=== PATIENT | male | born 1950 | race Caucasian/White ===

== ENCOUNTER 2019-07-25 23:25 | Inpatient (IN) | payer MEDICARE ==
[2019-07-26 00:03] LABS: Hemoglobin 9.1 g/dL (14.0-18.0); Mean Corpuscular Hemoglobin 28.9 pg (27.0-31.0); Mean Corpuscular Volume 90.4 fL (78.0-98.0); RBC Distribution Width 23.9 % (11.5-14.5); Red Blood Cell (RBC) Count 3.15 mill/uL (4.70-6.10); White Blood Cell (WBC) Count 1.7 thou/uL (4.8-10.8)
[2019-07-26 00:04] LABS: INR-International Normal Ratio 1.1; PTT 31.9 SEC (22.9-36.1); Prothrombin Time 14.5 SEC (12.0-14.7)
[2019-07-26 00:15] LABS: Platelet Count 9 thou/uL (130-400)
[2019-07-26 00:16] LABS: ALT (SGPT) 14 U/L (8-55); AST (SGOT) 17 U/L (5-34); Albumin 4.2 g/dL (3.4-4.8); Alkaline Phosphatase 69 U/L (40-110); Anion Gap 13 mmol/L (10-20); BUN (Urea Nitrogen) 13 mg/dL (8.4-25.7); Calc. Creatinine Clearance 0 mL/min (70-130); Calcium 9.4 mg/dL (7.8-10.44); Carbon Dioxide 23 mmol/L (23-31); Chloride 108 mmol/L (98-107); Estimated GFR-MDRD 75; Globulin 3.4 g/dL (2.4-3.5); Glucose 95 mg/dL (80-115); Potassium 3.6 mmol/L (3.5-5.1); Protein, Total 7.6 g/dL (5.8-8.1); Sodium 140 mmol/L (136-145)
[2019-07-26 00:22] LABS: Anisocytosis SLIGHT = 6-15 cells (100X) (0-5/hpf); Differential Comment Immature Cell(s); Elliptocytes SLIGHT = 2-5 cells (100X) (0-1/hpf); Lymphocytes 84 % (21-51); MDiff Complete? YES; Monocytes 11 % (0-10); Neutrophil 4 % (42-75); Nucleated RBC 1 % (0); Tear Drops SLIGHT = 2-5 cells (100X) (0-1/hpf)
--- NOTE | 2019-07-26 02:05 | PDOC.EVN ---
Event Note - Event Note Event Note: [id number] HP
--- NOTE | 2019-07-26 03:09 | HP ---
CHIEF COMPLAINT: Abnormal labs. HISTORY OF PRESENT ILLNESS: Mr. Parr is a 68-year-old male with past medical history of leukemia, recently diagnosed with subdural hematoma, presents to the emergency room after abnormal labs at PCP. PCP's office called and the patient was told that he has abnormal labs and low platelets and he needs to go to the emergency room. The patient was in the [facility] last week, has lived there for three years, diagnosed with subdural hematoma. He also had a low platelet count around 10, he was given blood transfusion and platelet transfusion in the [facility]. The patient brain bleed would fix itself? The patient has mild headaches. CT of the brain showed acute over chronic subdural hematoma. ED physician consulted with neurosurgeon, who advised to give platelet transfusions and admit the patient under Medical Service. The patient was diagnosed with leukemia few years ago and he was given one round of chemotherapy, after that he did not follow. Today in the emergency room, the patient has low white cell count, low platelets, and anemic. Platelet count is 8000. The patient is being admitted to the hospital for further management. PAST MEDICAL HISTORY: 1. Recently diagnosed with subdural hematoma. 2. Leukemia. PAST SURGICAL HISTORY: Right ankle surgery. FAMILY HISTORY: Reviewed and noncontributory. SOCIAL HISTORY: Denies smoking, alcohol drinking, or drug abuse. HOME MEDICATIONS: Please see home medication reconciliation form for updated medications. ALLERGIES: NO KNOWN ALLERGIES. REVIEW OF SYSTEMS: Review of 14 systems negative except what is mentioned in the history of present illness. PHYSICAL EXAMINATION: GENERAL: The patient is awake, alert, does not appear to be in acute distress. VITAL SIGNS: Blood pressure 142/72, pulse is 62, respiratory rate is 18, pulse oximetry is 100% on room air, and temperature 97.6. HEAD AND NECK: Normocephalic, atraumatic. Neck is supple. No JVD. CHEST: Fair bilateral air entry. HEART: S1 and S2. Regular. ABDOMEN: Soft, nontender. Bowel sounds present. NEUROLOGIC: Awake, alert, oriented x3. No focal deficit. PSYCH: Normal mood. EXTREMITIES: No clubbing or cyanosis. LABORATORY DATA: As mentioned above in the history of present illness. IMAGING DATA: CT of the brain as mentioned above in the history of present illness. ASSESSMENT: 1. Acute on chronic subdural hematoma. 2. Thrombocytopenia. 3. Anemia. 4. Leukopenia. 5. History of leukemia. 6. Hypertension. PLAN: 1. Admit to CCU. 2. Frequent neuro checks. 3. Platelet transfusion as recommended by neurosurgeon. 4. Neurosurgeon consult for evaluation and further management. 5. Consider Hematology/Oncology consultation in a.m. for evaluation and further management. 6. Reconcile home medications. 7. DVT prophylaxis, SCD. 8. Expected length of stay, 2 midnights or more. Job ID: [id number]
[2019-07-26 03:21] VITALS: BMI 23.6
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
[2019-07-26 05:23] LABS: Anion Gap 13 mmol/L (10-20); BUN (Urea Nitrogen) 13 mg/dL (8.4-25.7); Calc. Creatinine Clearance 88 mL/min (70-130); Calcium 9.2 mg/dL (7.8-10.44); Carbon Dioxide 22 mmol/L (23-31); Chloride 109 mmol/L (98-107); Estimated GFR-MDRD 89; Glucose 81 mg/dL (80-115); Potassium 3.8 mmol/L (3.5-5.1); Sodium 140 mmol/L (136-145)
[2019-07-26 05:28] LABS: Platelet Count 28 thou/uL (130-400)
[2019-07-26 06:01] LABS: Anisocytosis SLIGHT = 6-15 cells (100X) (0-5/hpf); Band 1 % (5-11); Elliptocytes SLIGHT = 2-5 cells (100X) (0-1/hpf); Hemoglobin 8.8 g/dL (14.0-18.0); Lymphocytes 85 % (21-51); MDiff Complete? YES; Mean Corpuscular HGB CONC 31.7 g/dL (32.0-36.0); Mean Corpuscular Hemoglobin 28.9 pg (27.0-31.0); Mean Corpuscular Volume 91.3 fL (78.0-98.0); Mean Platelet Volume 9.2 fL (7.4-10.4); Monocytes 13 % (0-10); Neutrophil 1 % (42-75); Nucleated RBC 2 % (0); Platelet Morphology Comment Appears Decreased; RBC Distribution Width 23.2 % (11.5-14.5); Red Blood Cell (RBC) Count 3.05 mill/uL (4.70-6.10); Tear Drops SLIGHT = 2-5 cells (100X) (0-1/hpf); White Blood Cell (WBC) Count 2.3 thou/uL (4.8-10.8)
--- NOTE | 2019-07-26 07:52 | CT ---
PRELIMINARY REPORT/[facility]/EMERGENCY AFTER HOURS PROCEDURE: Addendum created by Damien Huang MD on 07/26/2019 12:53 AM Central Time ([place] & [place]) CRITICAL RESULT : The study was discussed on the telephone with Courtney Gomez on 07/26/2019 12:53 AM CDT. The resu lts were understood and acknowledged. Initial Report created on 07/26/2019 12:44 AM Central Time ([place] & [place]) PROCEDURE INFORMATION: Exam: CT Head Without Contrast Exam date and time: 07/26/2019 12:34 AM Clinical history: 68 years old, male; Condition or disease; Patient HX: M68, headache, patient called today from pcp office due to critical lab result. Platelet count at 9. Was in the hospital in the [facility] last week for brain bleed. TECHNIQUE: Imaging protocol: Computed tomography of the head without contrast. COMPARISON: No relevant prior studies available. FINDINGS: Brain: Mixed attenuation right frontal extra-axial hemorrhage likely represent acute on subacute subd ural hematoma with clot. Maximal thickness of 1.4 cm. Extensive left sided mixed attenuation subdural hematoma extending from the medial left frontal lobe to the occipital lobe. This demonstrates maximal thickness of 1.1 cm. Approximately 4 cm of leftward subfalcine shift. Probable 1 mm residual parafalcine subdural hemorrhage. No parenchymal hemorrhage. Ventricles: No ventriculomegaly. Bones/joints: Unremarkable. No acute fracture. Sinuses: Visualized sinuses are unremarkable. No fluid levels. Mastoid air cells: Visualized mastoid air cells are well aerated. Soft tissues: Unremarkable. IMPRESSION: Bilateral left greater than right acute on subacute/chronic subdural hematomas with maximal thickness of 1.4 cm on the right and approximately 4 mm of leftward subfalcine shift without ventricular entra pment. Thank you for allowing us to participate in the care of your patient. Dictated and Authenticated by: Damien Huang MD 07/26/2019 12:44 AM Central Time ([place] & [place]) FINAL REPORT EMERGENT AFTER HOURS CT OF THE BRAIN WITHOUT CONTRAST: FINDINGS/IMPRESSION: I agree with the findings and impression given in the preliminary report per [facility] physician. There are acute on chronic bilateral subdural hematomas, left greater than right. POS: [facility]
[2019-07-26] MEDS: Famotidine/PF 20 mg/2ml Vial SLOW IVP SCH ×2 (08:50→20:06)
[2019-07-26] MEDS ORDERED: Prevnar 13-Val Conj/PF 0.5 ML SYRINGE IM ONE (09:00)
[2019-07-26] MEDS ORDERED: FLU VACC TS2019-20(65YR UP)/PF 180 MCG/0.5 ML SYRINGE IM ONE (09:00)
--- NOTE | 2019-07-26 09:21 | CT ---
Head CT without contrast 07/26/2019 9:05 am: COMPARISON: 07/26/2019 HISTORY: Reevaluate intracranial hemorrhage TECHNIQUE: Axial CT imaging at 5 mm intervals from vertex through skull base without contrast FINDINGS: Bilateral acute on chronic subdural hematomas are again noted. Components of bilateral subd ural hematomas are seen in the frontal, parietal, and occipital regions, most prominent in the frontal regions, measuring up to 1.4 cm in transverse dimension in the right frontal region and measu ring up to approximately 1.1 cm and the left frontal region. There has been no significant interval change when compared to the prior examination performed approximately 8-9 hours prior. The ventricula r system is stable in size/configuration. No significant midline shift. No acute osseous abnormality. IMPRESSION: Stable hemispheric acute on chronic bilateral subdural hematomas.
--- NOTE | 2019-07-26 14:06 | PDOC.HOSPP ---
- Subjective Encounter Date: 07/26/19 Encounter Time: 12:35 Subjective: awake, no weakness in any extremities mild headache, no visual disturbances, wear glasses (cant locate it now) - Objective Vital Signs & Weight: Vital Signs (12 hours) Temp Pulse Ox 07/26/19 12:00 97.7 F 07/26/19 08:00 98.2 F 99 07/26/19 03:00 97.9 F 100 Weight Admit Weight 164 lb Weight 164 lb 10.965 oz Most Recent Monitor Data Heart Rate from ECG 62 NIBP 136/70 NIBP BP-Mean 92 Respiration from ECG 20 SpO2 100 I&O: 07/25/19 07/26/19 07/27/19 06:59 06:59 06:59 Intake Total 460 Output Total 300 725 Balance -300 -265 Result Diagrams: 07/26/19 04:42 07/26/19 04:41 Hospitalist ROS - Medication Medications: Active Medications Generic Name Dose Route Start Last Admin Trade Name Freq PRN Reason Stop Dose Admin Famotidine 20 mg 07/26/19 09:00 07/26/19 08:50 Pepcid SLOW IVP 20 mg Q12HR ANGEL Administration - Exam General Appearance: awake alert Eye: PERRL, anicteric sclera ENT: no oropharyngeal lesions, moist mucosa Neck: supple, no JVD Heart: RRR, no murmur Respiratory: no wheezes, no rales Gastrointestinal: soft, non-tender, non-distended, normal bowel sounds Extremities: no clubbing, no edema Neurological: cranial nerve grossly intact, no focal deficits Psychiatric: normal affect, A&O x 3 Hosp A/P (1) Subdural hematoma Code(s): S06.5X9A - TRAUM SUBDR HEM W LOC OF UNSP DURATION, INIT Status: Acute (2) AML (acute myeloid leukemia) Code(s): C92.00 - ACUTE MYELOBLASTIC LEUKEMIA, NOT HAVING ACHIEVED REMISSION Status: Chronic Qualifiers: Leukemia Active/Remission status: without remission Qualified Code(s): C92.00 - Acute myeloblastic leukemia, not having achieved remission (3) Pancytopenia Code(s): D61.818 - OTHER PANCYTOPENIA Status: Acute - Plan has h/o AML diagnosed in [address] [facility] in [facility] (bone marrow and other w/u from there are in chart) he took one cycle of chemo, lost nearly 30lbs and didn't want to go through that again he has not seen a onc [place] in [place] recieved 6 pack platelets last night, still low at 28 now [facility] consult may give additional platelets if signs of ICH/sdh or if surgery is planned to bring it upto 50k. may transfer to onc floor if no surgery is planned oob to chair and ambulate as tolerated
--- NOTE | 2019-07-26 17:49 | PRG ---
DATE OF SERVICE: 07/26/2019 Mr. Parr is a 68-year-old gentleman admitted for thrombocytopenia in the setting of a previous diagnosis of leukemia dating back 4 to 5 years ago. He had a CT examination performed of the head, which revealed mixed density bilateral subdural hematomas over both cerebral convexities. Neurologically, he appeared to be at baseline. He reports only mild degree of headache. His platelet count has increased from a single digit of 9 up to 28 as of early this morning. The plan from neurosurgical perspective at this time will be nonoperative management given his stable neurologic exam. We advocate the treatment of his platelets in order to reduce risk of a spontaneous hemorrhage, but also mitigate risk should he need a surgical intervention for nirmal hole drainage. The neurosurgical service will continue to follow. Job ID: [id number]
--- NOTE | 2019-07-26 20:34 | CON ---
DATE OF CONSULTATION: REASON FOR CONSULTATION: AML. HISTORY OF PRESENT ILLNESS: Mr. 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 This was done in the [facility], where he was working. He had 49% blasts. He underwent one dose of chemotherapy. Repeat bone marrow showed a blast count of 17%. At that point, he moved back to the [facility] and he was 65 years old and unable to get any type of insurance, so he did not pursue further treatment. He has done well over the last several years until recently when he had a fall and hit his head. He was diagnosed with a subdural hematoma, it was noted at that time and his platelets were decreased. He stayed in the hospital in the [facility] for over a week. He was discharged on July 16 and flew back to the [facility], where he saw his primary care. She checked a CBC. He had a white count of 1.8 and a platelet count of 8000, so he was sent to the emergency room for evaluation. Here, he is complaining of headaches, so he had a repeat CT scan of his brain. It showed acute on chronic subdural hematomas. He was transfused platelets and admitted for neuro stabilization. The patient at time of original diagnosis in 2015 was treated for dengue fever. In the [facility], he had high fevers and was hospitalized for multiple times before finally being diagnosed with leukemia. He denies any complaints at this time other than fatigue. No shortness of breath, chest pain, or abdominal pain. He has fatigue. No headache or neurological changes. PAST MEDICAL HISTORY: 1. AML diagnosed in [address] [facility]. 2. Subdural hematoma diagnosed a month ago in the [facility]. PAST SURGICAL HISTORY: Ankle surgery. ALLERGIES: NO KNOWN DRUG ALLERGIES. HOME MEDICATIONS: 500 mg t.i.d. FAMILY HISTORY: Noncontributory. SOCIAL HISTORY: Single. 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 No alcohol, tobacco, or illicit drug use. REVIEW OF SYSTEMS: A 10-point review of systems is negative except for noted in HPI. PHYSICAL EXAMINATION: VITAL SIGNS: Temperature is 97.7, pulse is 62, respiratory rate 20, blood pressure is 136/70, and he is 100% on room air. GENERAL: This is a well-developed, well-nourished male, in no acute distress. HEENT: Normocephalic and atraumatic. Pupils are equal and reactive to light. NECK: Supple. CV: Regular rate and rhythm. LUNGS: Clear. ABDOMEN: Soft and nontender. Bowel sounds are positive. EXTREMITIES: No clubbing or cyanosis. SKIN: No rash. HEMATOLOGIC: He has ecchymosis on his upper extremities. Scattered petechiae. NEUROLOGIC: Nonfocal. PSYCHIATRIC: He is alert, oriented, and appropriate. PERTINENT LABORATORY DATA AND X-RAYS: Current WBCs are 2.3, hemoglobin 8.8, hematocrit 27.8, platelet count is 28,000, 1% neutrophils, 1% bands, 85% lymphocytes, and 13% monocytes. PT is 14.5, INR 1.1, and PTT is 31.9. Sodium is 140, potassium 3.8, chloride 109, CO2 is 22, BUN is 13, creatinine 0.86, glucose 81, calcium 9.2. Bilirubin 1.0, AST 17, ALT is 14, alkaline phosphatase is 69, serum total protein 7.6, albumin 4.2, and globulin 3.4. RADIOLOGY: Per HPI. ASSESSMENT: 1. History of acute myeloid leukemia. 2. Pancytopenia secondary to #1. 3. Acute on chronic subdural hematoma. DISCUSSION: The patient has been transfused platelets. Goal will be keep platelets between 40,000 to 50,000. Given his acute subdural hematomas, we will transfuse another unit today as he has not had any since early this morning. We will check a routine CBC in the morning. The patient will need a bone marrow biopsy to re-stage for his AML. He has agreed to this procedure. We will order that and hopefully that can be done in the morning and further recommendations will be based on those results. This has been discussed with the patient and daughter at bedside. They would wish to proceed. I have also discussed with Dr. Lao. Thank you for the consult. We will follow his hospital course. Job ID: [id number]
[2019-07-26] MEDS: Acetaminophen 325 MG TAB PO PRN (23:37)
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
[2019-07-27 05:26] LABS: Anion Gap 15 mmol/L (10-20); BUN (Urea Nitrogen) 12 mg/dL (8.4-25.7); Calc. Creatinine Clearance 92 mL/min (70-130); Calcium 8.9 mg/dL (7.8-10.44); Carbon Dioxide 19 mmol/L (23-31); Chloride 109 mmol/L (98-107); Estimated GFR-MDRD Greater than 90; Glucose 83 mg/dL (80-115); Potassium 3.8 mmol/L (3.5-5.1); Sodium 139 mmol/L (136-145)
[2019-07-27 09:08] LABS: Hemoglobin 9.7 g/dL (14.0-18.0); Mean Corpuscular HGB CONC 31.6 g/dL (32.0-36.0); Mean Corpuscular Hemoglobin 28.3 pg (27.0-31.0); Mean Corpuscular Volume 89.7 fL (78.0-98.0); Platelet Count 43 thou/uL (130-400); RBC Distribution Width 23.8 % (11.5-14.5); Red Blood Cell (RBC) Count 3.43 mill/uL (4.70-6.10)
[2019-07-27 09:26] LABS: Band 2 % (5-11); Hypochromia SLIGHT = 6-15 cells (100X) (0-5/hpf); Lymphocytes 74 % (21-51); MDiff Complete? YES; Monocytes 8 % (0-10); Neutrophil 16 % (42-75); Platelet Morphology Comment Appears Decreased; Polychromasia SLIGHT = 2-3 cells (100X) (0-2/hpf); Schistocytes SLIGHT = 2-5 cells (100X) (0-1/hpf); Tear Drops SLIGHT = 2-5 cells (100X) (0-1/hpf)
[2019-07-27] MEDS: Famotidine/PF 20 mg/2ml Vial SLOW IVP SCH (10:14)
[2019-07-27] MEDS ORDERED: Sodium Bicarbonate 2.5 MEQ/5 ML VIAL ONE (10:34)
[2019-07-27] MEDS ORDERED: Fentanyl 100 MCG/2 ML VIAL ONE (10:35)
[2019-07-27] MEDS ORDERED: Midazolam HCl 2 mg/2 ml Vial ONE (10:35)
--- NOTE | 2019-07-27 11:47 | PDOC.MOPN ---
Interval History: had BM biopsy this am. Tolerated well. No complaints. - Vital Signs Vital Signs: Vital Signs (12 hours) Temp Pulse Resp BP Pulse Ox 07/27/19 11:42 70 19 122/60 99 07/27/19 10:05 97.8 F 66 18 143/67 H 100 07/27/19 10:04 100 07/27/19 08:00 98 07/27/19 07:00 98.2 F 07/27/19 04:00 98.5 F 07/27/19 00:00 98.1 F Weight Admit Weight 164 lb Weight 164 lb 7.437 oz Most Recent Monitor Data Heart Rate from ECG 69 NIBP 125/68 NIBP BP-Mean 87 Respiration from ECG 19 SpO2 98 - Physical Exam General: Alert, Oriented x3, No acute distress HEENT: Atraumatic, PERRLA, EOMI, Mucous membr. moist/pink Lungs: Clear to auscultation, Normal air movement Cardiovascular: Regular rate, Normal S1, Normal S2, No murmurs, Gallops, Rubs Abdomen: Normal bowel sounds, Soft, No tenderness, No hepatospenomegaly, No masses Extremities: No clubbing, No cyanosis, No edema, Normal pulses, No tenderness/ swelling Skin: No rashes, No breakdown, No significant lesion Neurological: Normal gait, Normal speech, Strength at 5/5 X4 ext, Normal tone, Sensation intact, Cranial nerves 3-12 NL, Reflexes 2+ Psych/Mental Status: Mental status NL, Mood NL - Labs Result Diagrams: 07/27/19 08:44 07/27/19 04:49 Lab results: Laboratory Results - last 24 hr 07/27/19 08:44: WBC 2.0 L, RBC 3.43 L, Hgb 9.7 L, Hct 30.8 L, MCV 89.7, MCH 28.3 , MCHC 31.6 L, RDW 23.8 H, Plt Count 43 L, MPV 7.0 L, Neutrophils % (Manual) 16 L, Band Neuts % (Manual) 2 L, Lymphocytes % (Manual) 74 H, Monocytes % (Manual) 8, Neutrophils # Not Reportable, Lymphocytes # Not Reportable, Hypochromia SLIGHT = 6-15 cells, Plt Morphology Comment Appears Decreased L, Polychromasia SLIGHT = 2-3 cells, Tear Drop Cells SLIGHT = 2-5 cells, Schistocytes SLIGHT = 2- 5 cells 07/27/19 04:49: Sodium 139, Potassium 3.8, Chloride 109 H, Carbon Dioxide 19 L, Anion Gap 15, BUN 12, Creatinine 0.82, Estimated GFR (MDRD) Greater than 90, Glucose 83, Calcium 8.9 07/25/19 23:46: Blood Type A POSITIVE, Antibody Screen NEGATIVE Status: lab reviewed by me A/P - Problem (1) Pancytopenia Current Visit: Yes Code(s): D61.818 - OTHER PANCYTOPENIA Status: Acute (2) Subdural hematoma Current Visit: Yes Code(s): S06.5X9A - TRAUM SUBDR HEM W LOC OF UNSP DURATION , INIT Status: Acute (3) AML (acute myeloid leukemia) Current Visit: Yes Code(s): C92.00 - ACUTE MYELOBLASTIC LEUKEMIA, NOT HAVING ACHIEVED REMISSION Status: Chronic Qualifiers: Leukemia Active/Remission status: without remission Qualified Code(s): C92.00 - Acute myeloblastic leukemia, not having achieved remission - Plan Plan: 1. await biopsy results, if recurrent AML plan inpatient transfer to [facility] 2. Keep platelets between 40-50 due to SDH, CBC daily
--- NOTE | 2019-07-27 15:53 | PDOC.HOSPP ---
- Subjective Encounter Date: 07/27/19 Encounter Time: 12:00 Subjective: no bleeding anywhere, no sob headache is better, no new weakness - Objective Vital Signs & Weight: Vital Signs (12 hours) Temp Pulse Resp BP Pulse Ox 07/27/19 15:48 17 104/58 L 99 07/27/19 13:30 66 19 118/58 L 07/27/19 12:59 66 18 109/58 L 07/27/19 12:29 69 17 114/59 L 07/27/19 12:14 68 18 114/57 L 99 07/27/19 11:59 98.7 F 66 18 103/67 96 07/27/19 11:42 70 19 122/60 99 07/27/19 10:05 97.8 F 66 18 143/67 H 100 07/27/19 10:04 100 07/27/19 08:00 98 07/27/19 07:00 98.2 F 07/27/19 04:00 98.5 F Weight Admit Weight 164 lb Weight 164 lb 7.437 oz Most Recent Monitor Data Heart Rate from ECG 69 NIBP 125/68 NIBP BP-Mean 87 Respiration from ECG 19 SpO2 98 I&O: 07/26/19 07/27/19 07/28/19 06:59 06:59 06:59 Intake Total 1260 Output Total 300 2600 350 Balance -300 -1340 -350 Result Diagrams: 07/27/19 08:44 07/27/19 04:49 Hospitalist ROS - Medication Medications: Active Medications Generic Name Dose Route Start Last Admin Trade Name Freq PRN Reason Stop Dose Admin Acetaminophen 650 mg 07/26/19 01:16 07/26/19 23:37 Tylenol PO 650 mg Q6H PRN Administration Fever > 101 or Headache Pantoprazole Sodium 40 mg 07/27/19 09:00 07/27/19 09:37 Protonix PO 40 mg DAILY ANGEL Administration - Exam General Appearance: NAD, awake alert Eye: PERRL, anicteric sclera ENT: no oropharyngeal lesions, moist mucosa Neck: supple, no JVD Heart: RRR, no murmur Respiratory: no wheezes, no rales Gastrointestinal: soft, non-tender, non-distended, normal bowel sounds Extremities: no cyanosis, no edema Neurological: cranial nerve grossly intact, no focal deficits Psychiatric: normal affect, A&O x 3 Hosp A/P (1) Subdural hematoma Code(s): S06.5X9A - TRAUM SUBDR HEM W LOC OF UNSP DURATION, INIT Status: Acute (2) AML (acute myeloid leukemia) Code(s): C92.00 - ACUTE MYELOBLASTIC LEUKEMIA, NOT HAVING ACHIEVED REMISSION Status: Chronic Qualifiers: Leukemia Active/Remission status: without remission Qualified Code(s): C92.00 - Acute myeloblastic leukemia, not having achieved remission (3) Pancytopenia Code(s): D61.818 - OTHER PANCYTOPENIA Status: Acute - Plan has h/o AML diagnosed in [address] [facility] in [facility] (bone marrow and other w/u from there are in chart) he took one cycle of chemo, lost nearly 30lbs and didn't want to go through that again he has not seen a onc [place] in [place] until now recieved total of 12 pack platelets, around 40's now had bm biopsy today may transfer to onc floor, no surgery is planned oob to chair and ambulate as tolerated
--- NOTE | 2019-07-27 16:32 | CT ---
CT-guided random bone marrow biopsy: DATE: 07/27/2019 HISTORY: 68-year-old male with acute myeloid leukemia. TECHNIQUE: Signed informed consent obtained. Patient placed prone on CT table. Skin posterior to right posterior superior iliac spine prepared and draped in usual sterile fashion. 25-gauge needle used to apply buffered lidocaine superficially, then multiple times at the periosteum. [employer] Powered Bone Access System used. 11-gauge needle advanced through the skin with distal tip advanced through the cortex of the PSIS under step CT guidance. After removal of stylette, 2 syringes were used to acquire 2 mL, then 7 mL, of bloody bone marrow aspirates. These were given to laboratory technicians from pathology. Next, the power drill was mounted on the hollow outer cannula, and was thrust into the andrea ac bone, and withdrawn, yielding a 2.5 to 3 cm long bone plug core. Compression was applied at the site. Patient tolerated procedure well. No complications. IMPRESSION: 1. Successful 11-gauge bone marrow core biopsy. 2. Successful bone marrow aspiration.
[2019-07-28 07:25] LABS: Anion Gap 13 mmol/L (10-20); BUN (Urea Nitrogen) 12 mg/dL (8.4-25.7); Calc. Creatinine Clearance 81 mL/min (70-130); Calcium 9.3 mg/dL (7.8-10.44); Carbon Dioxide 22 mmol/L (23-31); Chloride 106 mmol/L (98-107); Estimated GFR-MDRD 81; Glucose 88 mg/dL (80-115); Potassium 3.9 mmol/L (3.5-5.1); Sodium 137 mmol/L (136-145)
[2019-07-28] MEDS: Acetaminophen 325 MG TAB PO PRN (08:55)
[2019-07-28 09:14] LABS: Hemoglobin 9.6 g/dL (14.0-18.0); Lymphocytes 84 % (21-51); MDiff Complete? YES; Mean Corpuscular Hemoglobin 28.7 pg (27.0-31.0); Mean Corpuscular Volume 89.6 fL (78.0-98.0); Mean Platelet Volume 7.4 fL (7.4-10.4); Monocytes 9 % (0-10); Neutrophil 5 % (42-75); Platelet Count 35 thou/uL (130-400); Platelet Morphology Comment Appears Decreased; Polychromasia SLIGHT = 2-3 cells (100X) (0-2/hpf); RBC Distribution Width 23.8 % (11.5-14.5); Reactive Lymphocytes 1 % (0-10); Red Blood Cell (RBC) Count 3.33 mill/uL (4.70-6.10); Schistocytes SLIGHT = 2-5 cells (100X) (0-1/hpf); Tear Drops SLIGHT = 2-5 cells (100X) (0-1/hpf); White Blood Cell (WBC) Count 2.1 thou/uL (4.8-10.8)
--- NOTE | 2019-07-28 12:14 | PDOC.HOSPP ---
- Subjective Encounter Date: 07/28/19 Encounter Time: 11:30 Subjective: no bleeding, has pain right shoulder from pneumococcal shot - Objective Vital Signs & Weight: Vital Signs (12 hours) Temp Pulse Resp BP Pulse Ox 07/28/19 08:40 98.5 F 81 18 114/65 94 L 07/28/19 08:00 94 L 07/28/19 04:28 98.9 F 64 16 117/61 99 Weight Admit Weight 164 lb Weight 164 lb 7.437 oz Most Recent Monitor Data Heart Rate from ECG 69 NIBP 125/68 NIBP BP-Mean 87 Respiration from ECG 19 SpO2 98 I&O: 07/27/19 07/28/19 07/29/19 06:59 06:59 06:59 Intake Total 1260 1100 Output Total 2600 350 Balance -1340 750 Result Diagrams: 07/28/19 06:10 07/28/19 06:10 Hospitalist ROS - Medication Medications: Active Medications Generic Name Dose Route Start Last Admin Trade Name Freq PRN Reason Stop Dose Admin Acetaminophen 650 mg 07/26/19 01:16 07/28/19 08:55 Tylenol PO 650 mg Q6H PRN Administration Fever > 101 or Headache Pantoprazole Sodium 40 mg 07/27/19 09:00 07/28/19 08:55 Protonix PO 40 mg DAILY ANGEL Administration Sodium Chloride 10 ml 07/26/19 01:16 07/28/19 08:59 Flush - Normal Saline IVF 10 ml PRN PRN Administration Saline Flush - Exam General Appearance: NAD, awake alert Eye: PERRL, anicteric sclera ENT: no oropharyngeal lesions, moist mucosa Neck: supple, no JVD Heart: RRR, no murmur Respiratory: no wheezes, no rales Gastrointestinal: soft, non-tender, non-distended, normal bowel sounds Extremities: no cyanosis, no edema Neurological: cranial nerve grossly intact, no focal deficits Psychiatric: normal affect, A&O x 3 Hosp A/P (1) Subdural hematoma Code(s): S06.5X9A - TRAUM SUBDR HEM W LOC OF UNSP DURATION, INIT Status: Acute (2) AML (acute myeloid leukemia) Code(s): C92.00 - ACUTE MYELOBLASTIC LEUKEMIA, NOT HAVING ACHIEVED REMISSION Status: Chronic Qualifiers: Leukemia Active/Remission status: without remission Qualified Code(s): C92.00 - Acute myeloblastic leukemia, not having achieved remission (3) Pancytopenia Code(s): D61.818 - OTHER PANCYTOPENIA Status: Acute - Plan has h/o AML diagnosed in [address] [facility] in [facility] (bone marrow and other w/u from there are in chart) he took one cycle of chemo, lost nearly 30lbs and didn't want to go through that again he has not seen a onc [place] in [place] until now recieved total of 12 pack platelets, around 40's now bm biopsy results are pending may transfer to [facility] per onc adv oob to chair and ambulate as tolerated
[2019-07-29 06:04] LABS: Hemoglobin 9.2 g/dL (14.0-18.0); Mean Corpuscular HGB CONC 32.1 g/dL (32.0-36.0); Mean Corpuscular Hemoglobin 28.8 pg (27.0-31.0); Mean Corpuscular Volume 89.5 fL (78.0-98.0); Platelet Count 28 thou/uL (130-400); RBC Distribution Width 24.1 % (11.5-14.5); Red Blood Cell (RBC) Count 3.21 mill/uL (4.70-6.10); White Blood Cell (WBC) Count 2.3 thou/uL (4.8-10.8)
[2019-07-29 06:11] LABS: Anion Gap 10 mmol/L (10-20); BUN (Urea Nitrogen) 13 mg/dL (8.4-25.7); Calc. Creatinine Clearance 73 mL/min (70-130); Calcium 9.4 mg/dL (7.8-10.44); Carbon Dioxide 25 mmol/L (23-31); Chloride 105 mmol/L (98-107); Estimated GFR-MDRD 72; Glucose 112 mg/dL (80-115); Potassium 3.6 mmol/L (3.5-5.1); Sodium 136 mmol/L (136-145)
[2019-07-29 06:34] LABS: Hypochromia SLIGHT = 6-15 cells (100X) (0-5/hpf); Lymphocytes 92 % (21-51); MDiff Complete? YES; Monocytes 6 % (0-10); Neutrophil 2 % (42-75); Ovalocytes SLIGHT = 2-5 cells (100X) (0-1/hpf); Platelet Morphology Comment Appears Decreased; Schistocytes SLIGHT = 2-5 cells (100X) (0-1/hpf)
--- NOTE | 2019-07-29 07:54 | PDOC.MOPN ---
Interval History: Pt feeling well w/o complaints. I discussed the results/treatment of his original AML diagnosis and current results. BM shows approximately 80% blasts. I recommended transfer for inpatient chemotherapy. - Vital Signs Vital Signs: Vital Signs (12 hours) Pulse Ox 07/28/19 20:00 99 Weight Admit Weight 164 lb 10.965 oz Weight 164 lb 7.437 oz Most Recent Monitor Data Heart Rate from ECG 69 NIBP 125/68 NIBP BP-Mean 87 Respiration from ECG 19 SpO2 98 - Physical Exam General: Alert, Oriented x3, Cooperative HEENT: EOMI Lungs: Other (non-labored) Abdomen: Soft Neurological: Cranial nerves 3-12 NL Psych/Mental Status: Mood NL - Labs Result Diagrams: 07/29/19 05:27 07/29/19 05:27 Lab results: Laboratory Results - last 24 hr 07/29/19 05:27: Sodium 136, Potassium 3.6, Chloride 105, Carbon Dioxide 25, Anion Gap 10, BUN 13, Creatinine 1.03, Estimated GFR (MDRD) 72, Glucose 112, Calcium 9.4 07/29/19 05:27: WBC 2.3 L, RBC 3.21 L, Hgb 9.2 L, Hct 28.7 L, MCV 89.5, MCH 28.8 , MCHC 32.1, RDW 24.1 H, Plt Count 28 L*, MPV TNP, Neutrophils % (Manual) 2 L, Lymphocytes % (Manual) 92 H, Monocytes % (Manual) 6, Neutrophils # Not Reportable, Lymphocytes # Not Reportable, Hypochromia SLIGHT = 6-15 cells, Plt Morphology Comment Appears Decreased L, Ovalocytes SLIGHT = 2-5 cells, Schistocytes SLIGHT = 2-5 cells 07/28/19 06:10: WBC 2.1 L, RBC 3.33 L, Hgb 9.6 L, Hct 29.8 L, MCV 89.6, MCH 28.7 , MCHC 32.0, RDW 23.8 H, Plt Count 35 L, MPV 7.4, Neutrophils % (Manual) 5 L, Lymphocytes % (Manual) 84 H, Reactive Lymphs % 1, Monocytes % (Manual) 9, Plt Morphology Comment Appears Decreased L, Polychromasia SLIGHT = 2-3 cells, Tear Drop Cells SLIGHT = 2-5 cells, Schistocytes SLIGHT = 2-5 cells - Pathology Pathology: BMBx: 80% myeloid blasts A/P - Plan Plan: Hx of AML - M4 in 2016 s/p chemo in the [facility]: likely 7 + 3, but pt declined consolidation therapy and has had no treatment since then. BMBx showing 80% blasts. Pt is stable and there is no indication for Hydrea at this time with WBC 2.3. Initiate transfer to [facility] for inpatient chemotherapy f/u final BM pathology subdural hematoma treatment as per neurosurgery: appears chronic and unchanged, monitor monitor CBC, transfuse for Hb < 7, Plts < 10-20 given subdural hematoma, does not need to be > 50-100 given chronicity and stability
--- NOTE | 2019-07-29 12:18 | PDOC.HOSPP ---
- Subjective Encounter Date: 07/29/19 Encounter Time: 11:00 Subjective: awake, not in distress no bleeding right Upper arm pain is better and is moving actively now - Objective Vital Signs & Weight: Vital Signs (12 hours) Temp Pulse Resp BP Pulse Ox 07/29/19 11:57 98.3 F 74 16 136/63 98 07/29/19 08:10 98.2 F 75 16 112/69 98 Weight Admit Weight 164 lb 10.965 oz Weight 164 lb 7.437 oz Most Recent Monitor Data Heart Rate from ECG 69 NIBP 125/68 NIBP BP-Mean 87 Respiration from ECG 19 SpO2 98 I&O: 07/28/19 07/29/19 07/30/19 06:59 06:59 06:59 Intake Total 1100 1680 Output Total 350 Balance 750 1680 Result Diagrams: 07/29/19 05:27 07/29/19 05:27 Hospitalist ROS - Medication Medications: Active Medications Generic Name Dose Route Start Last Admin Trade Name Freq PRN Reason Stop Dose Admin Acetaminophen 650 mg 07/26/19 01:16 07/28/19 08:55 Tylenol PO 650 mg Q6H PRN Administration Fever > 101 or Headache Pantoprazole Sodium 40 mg 07/27/19 09:00 07/29/19 10:08 Protonix PO 40 mg DAILY ANGEL Administration Sodium Chloride 10 ml 07/26/19 01:16 07/28/19 08:59 Flush - Normal Saline IVF 10 ml PRN PRN Administration Saline Flush - Exam General Appearance: NAD, awake alert Eye: PERRL, anicteric sclera ENT: normocephalic atraumatic, no oropharyngeal lesions Neck: supple, symmetric Heart: RRR, no murmur Respiratory: no wheezes, no rales Gastrointestinal: soft, non-tender, non-distended, normal bowel sounds Extremities: no cyanosis, no edema Neurological: cranial nerve grossly intact, no focal deficits Psychiatric: normal affect, A&O x 3 Hosp A/P (1) Subdural hematoma Code(s): S06.5X9A - TRAUM SUBDR HEM W LOC OF UNSP DURATION, INIT Status: Acute (2) AML (acute myeloid leukemia) Code(s): C92.00 - ACUTE MYELOBLASTIC LEUKEMIA, NOT HAVING ACHIEVED REMISSION Status: Acute Qualifiers: Leukemia Active/Remission status: without remission Qualified Code(s): C92.00 - Acute myeloblastic leukemia, not having achieved remission (3) Pancytopenia Code(s): D61.818 - OTHER PANCYTOPENIA Status: Acute - Plan has h/o AML diagnosed in 2016 at [facility] in [facility] (bone marrow and other w/u from there are in chart) he took one cycle of chemo, lost nearly 30lbs and didn't want to go through that again he has not seen a onc [place] in [place] until now recieved total of 12 pack platelets, around 30's now bm biopsy results confirm aml may transfer to [facility] per onc adv oob to chair and ambulate as tolerated
[2019-07-29 16:24] VITALS: BP 125/65; TEMP 97.6
--- NOTE | 2019-07-29 17:15 | DIS ---
DATE OF ADMISSION: 07/26/2019 DATE OF DISCHARGE: 07/29/2019 DISCHARGE DISPOSITION: To [facility]. PRIMARY DISCHARGE DIAGNOSES: 1. Acute myeloid leukemia. 2. Acute on chronic subdural hematoma, bilateral. 3. Pancytopenia due to acute myeloid leukemia. 4. Severe thrombocytopenia, status post 2 sets of platelet transfusions. INPATIENT CONSULT: 1. Dr. Ramon Lao for Oncology. 2. Dr. Jade for Neurosurgery. DISCHARGE MEDICATIONS: Protonix 40 mg p.o. daily. ALLERGIES: NO KNOWN DRUG ALLERGIES. PROCEDURES DONE DURING HOSPITALIZATION: Bone marrow biopsy, results showed translocation of 15;17 not detected and the findings were consistent with acute myeloid leukemia. Flow cytometry showed 49.5% [id number] myoblasts consistent with acute myeloid leukemia. FISH was performed and is negative for promyelocytic leukemia. CT of brain done on the day of admission showed bilateral left greater than right acute on subacute chronic/chronic subdural hematomas with maximal thickness of 1.4 cm on the right and approximately 4 mm of leftward subfalcine shift without ventricular entrapment. H and H of 9 and 28, platelet count 28, on admission was 9, had gone up to 43 after platelet transfusions, white count of 2.3, MCV 89, RDW 24, and 2% bands, there were 92% lymphocytes, monocytes were 6%. PT , INR, and PTT within normal limits. BUN 13, creatinine 1.0, serum bicarb 25, total bilirubin 1.0, AST and ALT within normal limits, alkaline phosphatase 69, and albumin 4.2. BRIEF COURSE DURING HOSPITALIZATION: The patient gave history of having been diagnosed with subdural bleed a month back when he hit his head on his car door. He has known history of acute myeloid leukemia, which was diagnosed in 2016 at [facility] in [facility]. He had bone marrow and other workup there in [facility]. He had received 1 cycle of chemotherapy and lost nearly 30 pounds and didn't go for consolidation therapy. He has had [id number] CAT scans done in this admission, which showed stable subacute subdural hematomas on both sides of his hemisphere. The patient remained neurosurgically stable with no intervention done. He had initial platelet count of 9. He was given 2 separate transfusions of 6 packed platelets, which made his platelet came up to 43 and is dropping back to 28 at the time of discharge. He has pancytopenia. He has had a repeat bone marrow biopsy done from his iliac crest. The results have described above. He was evaluated by Dr. Ramon Lao for Oncology. The patient has acute myeloid leukemia and will be shortly transferred to [facility]. He is otherwise ambulating and eating well. He is on Protonix in view of brain bleed. No other medications were given for him. He is otherwise hemodynamically stable with no bleeding anywhere at present. He has been cleared for discharge by all the consultants. Please note, I have seen and examined the patient on the day of discharge. Job ID: [id number] [facility]
== END 2019-07-29 18:00 | disposition short-term general hospital (02) | DRG 834 ==
LOC: ERS 23:25 → CCU 07-26 01:15 → ONC 07-27 10:13
PROVIDERS: ADMIT Internal Medicine; ATTEND Internal Medicine
PROC: 30233R1 Transfusion of Nonautologous Platelets into Peripheral Vein, Percutaneous Approach (ICD-10-PCS; 2019-07-26)
PROC: 07DR3ZX Extraction of Iliac Bone Marrow, Percutaneous Approach, Diagnostic (ICD-10-PCS; principal; 2019-07-27)
DX: C92.00 Acute myeloblastic leukemia, not having achieved remission (principal); I62.01 Nontraumatic acute subdural hemorrhage; I62.03 Nontraumatic chronic subdural hemorrhage; D61.818 Other pancytopenia; D69.6 Thrombocytopenia, unspecified; D64.9 Anemia, unspecified; I10 Essential (primary) hypertension; R40.2142 Coma scale, eyes open, spontaneous, at arrival to emergency department; R40.2252 Coma scale, best verbal response, oriented, at arrival to emergency department; R40.2362 Coma scale, best motor response, obeys commands, at arrival to emergency department
CPT/HCPCS: 20225; 36415; 36430; 70450; 77012; 80048; 85025; 85097; 85610; 85730; 86850; 86900; 86901; 88184; 88237; 88264; 88280; 88305; 88311; 88313; 90471; 90662; 90670; G0008; G0009; J2250; J3010; P9035; S0028